=== PATIENT | female | born 1985 | race Caucasian/White ===

== ENCOUNTER → 2021-01-15 11:37 | Outpatient (CLI) | payer OTHER, SELFPAY ==
--- NOTE | 2021-01-15 11:50 | RAD_ITS ---
STUDY: HYSTEROSALPINGOGRAM. REASON FOR EXAM: Female, 35 years old. INFERTILITY FLUOROSCOPY TIME (if supplied): ( 45 seconds ) minutes/seconds. 3 images were obtained. TECHNIQUE: Hysterosalpingogram was performed by the dye box operator. Imaging was submitted. COMPARISON: None. FINDINGS: There is a 3.9 mm x 2.7 mm filling defect in the left superior aspect of the uterus. This may represent either a uterine fibroid or possible polyp. Both fallopian tubes are patent with spill. Degenerative changes of the sacroiliac joints bilaterally. RAD/Salpingogram IMPRESSION: 3.9 mm x 2.7 mm filling defect in the left superior aspect of the uterus. Patency of both fallopian tubes. Sclerosis of the sacroiliac joints. Electronically Signed: Akin Jaffe MD at 15:19 EDT , Service support ,
== END ==
PROVIDERS: PCP Family Medicine; Referring Provider Obstetrics & Gynecology; Visit Provider Obstetrics & Gynecology
DX: N97.9 Female infertility, unspecified (principal)
CPT/HCPCS: 58340; 74740; Q9967

== ENCOUNTER 2021-03-01 05:28 | Day surgery (SDC) | payer OTHER, SELFPAY ==
[2021-02-26 16:32] LABS: Hematocrit 40.2 % (37-47); Hemoglobin 13.2 g/dL (12.0-15.0); Mean Corp Hgb Conc 32.8 g/dL (32-36); Mean Corpuscular Hgb 29.5 pg (27.0-32.0); Mean Corpuscular Volume 89.9 fL (81-99); Platelet Count 295 K/mm3 (150-450); RBC Distribution Width CV 13.1 % (11.6-14.6); RBC Distribution Width SD 43.3 fl (35.1-43.9); Red Blood Count 4.47 M/mm3 (4.2-5.4); White Blood Count 8.7 K/mm3 (4.4-11.0)
[2021-02-26 17:24] LABS: Internal QC Validated? YES +Cl - CLEAR BKGD; International Normalized Ratio 1.1; Pregnancy, Serum, hCG Quali. NEGATIVE Negative; Prothrombin Time (Protime)PT. 13.3 SECONDS (11.7-14.9)
[2021-02-26 17:29] LABS: Partial Thromboplast Time 24.3 Seconds (24.1-36.2)
--- NOTE | 2021-02-28 15:34 | PCM.HP.BLA ---
History and Physical Date of Admission: 03/01/21 Surgical History and Physical Janice Nagel, a 35 year old female 0 0 0 0 0, presents for D and C and hysteroscopy on March 01, 2021 at 10:15. -- Dysmenorrhea, EM Polyp -- Heavy menses and recent HSG showed endometrial polyp vs submucous fibroid in uterus. Plan D and C and H/S. MEDICATIONS HISTORY: ALLERGIES: heparin, Edema Infections - Chicken pox Illnesses - no serious past illnesses Accidents - None Hospitalizations - see surgery Review of Systems: GENERAL - Denies fever, or chills SKIN - Denies skin changes EYES - Denies visual changes EARS - Denies difficulty hearing NOSE - Denies nasal congestion or bleeding MOUTH - Denies sore throat or difficulty swallowing NECK - Denies pain or swelling RESPIRATORY - Denies shortness of breath or wheezing CARDIOVASCULAR - Denies palpitations or chest pain GASTROINTESTINAL - Denies nausea, vomiting, diarrhea, constipation GENITOURINARY - Denies dysuria, frequency of urination, incontinence of urine MUSCULOSKELETAL - Denies joint or muscle pain NEUROLOGICAL - Denies localized numbness or weakness PSYCHIATRIC - Denies depression or anxiety ENDOCRINE - Denies heat or cold intolerance, weight loss or gain HEMATO-IMMUNOLOGIC - Denies excesive bleeding with cuts SOCIAL HISTORY: Alcohol Use - occasionally Smoking - 4-7 cigarettes daily (ATQ) Diet - no particular diet Lifestyle - moderate stress lifestyle and Exercise - active work Seat Belt Use - always Employer - [employer] 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 ; - 2. 1986 Back Surgery PHYSICAL EXAM BP- 120/82 Sitting, Right arm, large cuff Weight- 225.29343 lbs Height- 61.50 inch BMI:41.95 CONSTITUTIONAL - NAD, well nourished, and well developed SKIN - No rash, lesions, or ulcers HEENT - Normocephalic, PERRLA, EOMI NECK - No nodes, no nuchal rigidity and thyroid normal size and texture LYMPH NODES - Palpation of lymph nodes in neck and groins within normal limits LUNGS - CTA x2 without wheezes, crackles or rales CARDIAC - Regular rate and rhythm without rubs, murmurs, or gallops BREAST - No dominant masses, no tenderness, no axillary adenopathy, no nipple discharge, no skin changes ABDOMEN - Without hepatosplenomegaly, distention, masses, rebound, or guarding; normal bowel sounds; no hernias EXTREMITIES - No edema or calf tenderness NEUROLOGICAL - Cranial nerves II-XII grossly intact PSYCHIATRIC - A and O to time, place, person, mood and affect External Genitial Vagina - non-tender without lesions Urethra/Urethral Meatus - non-tender Bladder - non-tender Vagina - vaginal norwood are pink and moist without loss of rugae and no evidence of atropy Cervix - without cervical motion tenderness and has normal size and features without evident lesions Uterus - multiparous size 6 cm & wt 75-125 g Adnexa - clear without massess or tenderness ASSESSMENT/PLAN: Dysmenorrhea and EM Polyp Heavy menses and recent HSG showed endometrial polyp vs submucous fibroid in uterus. Plan D and C and H/S. Discussed RBAs and all questions answered.
[2021-03-01] VITALS (7 sets, daily range): BP systolic 123–148; BP diastolic 77–97; PULSE 89–116; RESP 16–20; TEMP 36.4–36.9; O2SAT 89–97; BMI 40.6
[2021-03-01 06:15] LABS: Internal QC Validated? YES +Cl - CLEAR BKGD; Pregnancy, Urine Negative Negative
[2021-03-01] MEDS: Lactated Ringers 1,000 ML 100 ML IV (06:32)
--- NOTE | 2021-03-01 07:30 | EMB_PTH ---
PATIENT: DONNY SIMS LOC: [facility] [place] U#:[id number] AGE/SX: 35/F ROOM: RE03/01/[address]: Dr. Reza Sesay MD : 1985 BED: DIS: 03/01/2021 SPEC #: [id number] RECD: 03/01/21 10:05 STATUS: OZIEL RERusty #: [id number] NIKOLAS: 03/01/21 07:[address]: Reza Sesay DEPT: SURGICAL PATHOLOGY RECD BY: Dagmar Rushing ENTERED: 03/01/21 11:10 SP TYPE: ENDOM BX/C OTHR DR: Dr. Reza Pardo MD Tissues: Endometrium, NOS Procedures: Surgery Specimen Level IV HEADER OPERATION: Hysteroscopy, Dilation and curettage PRE-OP DIAGNOSIS: Dysmenorrhea, endometrial polyp TISSUE SUBMITTED: Endometrial curettings MICROSCOPIC DIAGNOSIS Endometrium, curettings: Secretory endometrium. Rare strips of benign superficial squamous mucosa. AM:rg 03/02/2021 MICROSCOPIC DESCRIPTION Slides are reviewed. GROSS DESCRIPTION Received in fixative is one container labeled with the patient's name and designated endometrial curettings. The specimen consists of multiple irregular fragments of pink-goodman soft tissue that in aggregate measure 7 x 5 x 0.2 cm. The specimen is totally submitted in three cassettes. / AM:isamar 03/01/21 TC:3 CPT: 01924
--- NOTE | 2021-03-01 08:03 | PCM.OP.BLANK ---
Problems Associated Problem List Diagnoses (1) Endometrial polyp: (2) Dysmenorrhea: Operative Report Date of Procedure: 03/01/21
--- NOTE | 2021-03-01 08:08 | PCM.OPRPT ---
Report of Operation Date of Procedure: 03/01/21 Pre-Operative Diagnosis: Dysmenorrhea, Endometrial Polyp Post-Operative Diagnosis: Dysmenorrhea, Endometrial Polyp Surgery/Procedure Performed:: Diagnostic Hysteroscopy, Dilation and Curettage Description of Surgical Findings:: 8 cm endometrial cavity with plush endometrium and possible endometrial polyps. Type of Anesthesia: MAC Anesthesiologist: Silvia Cristobal Specimen's removed: Endometrial curettings Estimated Blood Loss (mL): Minimal Fluids Replaced: Crystalloid Description of Procedure: Surgeon: Reaz Sesay MD, FACOG Indications: This is a 35 year old patient who has the above diagnosis. The patient has been counseled regarding the risk and indications of this procedure including the possibility of bleeding, infection, and injury to surrounding structures such as bowel bladder. All questions were answered and we consider the patient well-informed. Procedure: The patient was taken to the operating room where after induction of general anesthesia, she was placed in the dorsolithotomy position and prepped and draped in the usual sterile fashion. The bladder was drained of approximately 50 cc of clear yellow urine with a catheter. Anterior cervix was grasped with the tenaculum and dilated to about 4-5 mm. A 3 mm hysteroscope was placed in the uterus of the above findings were noted. Cervix was dilated to about 7-8 mm and uterus was gently curetted removing all contents. Hysteroscope was reinserted and all material was noted to be removed. In the course of the procedure approximately 100 cc of saline distending media was used and virtually all of this was recovered. Patient tolerated procedure well was taken to recovery room in satisfactory condition sponge instrument and needle counts were all reportedly correct. Estimated blood loss for the case was minimal. Specimens to pathology was endometrial curettings Complications: None Complications None Admit VTE Documentation VTE Present on Admission: Yes VTE Mechan Device Prophylaxis: SCD's
--- NOTE | 2021-03-01 08:19 | PCM.DC ---
Discharge Instructions Outpatient Procedure Reason For Visit: HYSTEROSCOPY D&C Procedure: Tubal Ligation Diet Discharge Diet: No restrictions Activity Discharge Activity: Return to Normal Activity, May Drive (when you are no longer taking narcotic pain medications.), May Shower and May Take a Tub Bath May resume sexual activity in: 10-14 days Additional Activity Instructions:: Nothing in the vagina for 5 days. Dressing / Incision Call your doctor if your incision/area has: Continuous Slow Oozing, Sudden Increased Bleeding, Increased Pain/ Swelling, Increased Redness and Foul Smelling Discharge Call your doctor if you observe: Fever of 101 or Higher, Inability to urinate, Inability to have a bowel movement and Using more than one pad per hour Follow Up Care Please Follow Up With: Reza Sesay MD When: 2-3 weeks Test Results: Test results from this visit will be discussed in further detail at your follow-up appointment, if applicable. Discharge Plan Admission Primary Reason for Your Visit: D and C and Hysteroscopy Attending Provider: Reza Sesay Primary Care Provider: Reza Pardo Discharge Orders/Prescriptions Prescriptions: No Action melatonin 10 mg Tablet 10 mg PO QHS RF: 0 Referrals: Reza Pardo MD [Primary Care Provider] - Disposition Patient Disposition: Home, self care
== END 2021-03-01 08:59 | disposition home or self-care (01) ==
LOC: SDC 05:29 → AC 05:30
PROVIDERS: PCP Family Medicine; Referring Provider Obstetrics & Gynecology; Visit Provider Obstetrics & Gynecology
PROC: 0UDB8ZZ Extraction of Endometrium, Via Natural or Artificial Opening Endoscopic (ICD-10-PCS; CPT 58558; principal; 2021-03-01 07:20)
DX: N94.6 Dysmenorrhea, unspecified (principal); N84.0 Polyp of corpus uteri; F17.210 Nicotine dependence, cigarettes, uncomplicated; Z20.822 Contact with and (suspected) exposure to COVID-19
CPT/HCPCS: 00952; 58558; 36415; 81025; 84703; 85027; 85610; 85730; 86850; 86900; 86901; 87426; 88305; C9803; J7120; J2405

== ENCOUNTER → 2021-05-28 09:45 | Outpatient (CLI) | payer OTHER, SELFPAY ==
[2021-03-01 06:26] VITALS: BMI 40.6
[2021-05-28 10:47] LABS: Insulin 10.8 mU/L (2.6-37.6)
[2021-05-28 10:49] LABS: Glucose 75GTT - Fasting 90 mg/dL (70-99)
[2021-05-28 11:11] LABS: Glucose 89 mg/dL (74-106)
[2021-05-28 11:13] LABS: Glucose 75GTT - 30 minutes 137 mg/dL (100-160)
[2021-05-28 11:17] LABS: Glucose 75GTT - 60 minutes 112 mg/dL (100-160)
[2021-05-28 12:51] LABS: Glucose 75GTT - 120 minutes 116 mg/dL (70-140)
== END ==
PROVIDERS: PCP Family Medicine; Referring Provider Obstetrics & Gynecology Reproductive Endocrinology; Visit Provider Obstetrics & Gynecology Reproductive Endocrinology
DX: E16.8 Other specified disorders of pancreatic internal secretion (principal)
CPT/HCPCS: 36415; 82947; 82951; 82952; 83525

== ENCOUNTER 2021-08-29 23:09 | Observation (INO) | payer OTHER, SELFPAY ==
[2021-08-29 23:10] VITALS: BP 163/102; PULSE 136; RESP 18; TEMP 36; O2SAT 95; BMI 43.1
[2021-08-29 23:12] VITALS: BP 163/102; PULSE 136; RESP 18; TEMP 36; O2SAT 95
--- NOTE | 2021-08-29 23:38 | CT_ITS ---
EXAM: CT ABDOMEN AND PELVIS WITH INTRAVENOUS CONTRAST : 1985 CLINICAL INDICATION: Abdominal pain -- IV PO Contrast TECHNIQUE: Helically acquired images were obtained of the abdomen and pelvis with intravenous contrast. This CT exam was performed using one or more of the following dose reduction techniques: automated exposure control, adjustment of the mA and/or kV according to patient size, and/or use of iterative reconstruction technique. This report was created using General Blood report generation technology. CONTRAST: Oral Tamp; IV Gastrografin Tamp; 100mL Isovue-370 COMPARISON: None. FINDINGS: LOWER THORAX: Bibasilar atelectasis. No cardiomegaly. No significant pericardial effusion. ABDOMEN: LIVER: Unremarkable. Homogeneous. No focal mass. GALLBLADDER AND BILE DUCTS: Unremarkable. No calcified gallstones. No gallbladder distention or wall edema. No intra- or extrahepatic biliary ductal dilation. PANCREAS: Unremarkable. No focal cystic or solid mass. SPLEEN: Unremarkable. Normal size without focal cystic or solid mass. ADRENALS: Unremarkable. No nodules. KIDNEYS AND URETERS: Unremarkable. Normal renal size and position. No hydronephrosis. STOMACH AND BOWEL: Unremarkable. No stomach or bowel distention. No focal inflammatory change. PELVIS: APPENDIX: The appendix is normal. BLADDER: Unremarkable. REPRODUCTIVE: Complex right adnexal hypodense structure measuring 5.5 x 3.6 cm with some mild adjacent stranding. ABDOMEN and PELVIS: INTRAPERITONEAL SPACE: Unremarkable. No ascites or other fluid collection. No free air. BONES/JOINTS: Unremarkable. No suspicious lytic or blastic abnormality. SOFT TISSUES: Unremarkable. No discrete abdominal or pelvic wall hernia. VASCULATURE: Unremarkable. Abdominal aorta is non-dilated. LYMPH NODES: Unremarkable. No enlarged lymph nodes. CT/Abdomen/Pelvis WITH Contrast IMPRESSION: Complex right adnexal hypodense structure measuring 5.5 x 3.6 cm with some mild adjacent stranding. Findings could indicate a complex cyst or tubo-ovarian abscess. Consider ultrasound for further evaluation. Individualized dose optimization techniques were used for this CT. at 0202 Reported and signed by: Johny Reed MD Electronically Signed: Johny Reed MD at 2:02 EDT Tel , Service support ,
[2021-08-29] MEDS: 0.9% Normal Saline 1,000 ML 1000 ML IV (23:55)
--- NOTE | 2021-08-29 23:55 | ED.VIS.GI ---
HPI HPI - GI History of Present Illness Chief Complaint: Abd Pain Informant: patient Abdominal Pain/Flank Pain Onset: Yesterday Context: Gradual Onset Timing: Continuous Quality: Sharp Location: RLQ and LLQ Worsened by: Movement Relieved by: Nothing Nausea/Vomiting/Emesis GI Symptom: Positive for Nausea and Vomiting Diarrhea/Melena/Hematochezia GI Symptom: Negative for Diarrhea, Melena and Hematochezia Associated Symptoms Associated Symptoms: Negative for Dysuria, Frequency and Hematuria Narrative Narrative: Patient presents with abdominal pain that began yesterday. Patient states it is gradually getting worse. Patient states it is over her lower abdomen. Patient states it is sharp. Patient states that she had similar pains with constipation in the past. Patient states her pain is worse with any movement. Patient states she did have an episode of nausea and vomiting with the pain earlier this morning. Patient denies any fevers or chills. Patient denies any dysuria or hematuria. PFSH PFSH Medical History Anxiety Diabetes Edema Injury of back Migraine headache Smoker Wears glasses Home Medications melatonin 10 mg PO QHS 02/23/21 [History Last Taken Unknown] PNV 67-iron ps-folate no.1-dha [Vitafol Ultra] 1 cap PO DAILY 08/30/21 [History Last Taken Unknown] Allergy/AdvReac Type Severity Reaction Status Date / Time warfarin sodium Allergy Swelling Verified 03/01/21 06:02 [From Coumadin] BLOOD THINNERS Allergy Unknown Uncoded 03/01/21 06:02 Surgical History History of lumbar laminectomy Social History Smoking Status: Current every day smoker tobacco type: cigarettes ROS ROS ED Constitutional Constitutional ED: Denies chills or fever(s) Eyes Eyes: Denies blurry vision or change in vision ENT ENT ED: Denies rhinorrhea or sore throat Cardiovascular Cardiovascular: Denies chest pain or palpitations Respiratory/Chest Respiratory/Chest: Denies cough or dyspnea Gastrointestinal Gastrointestinal: Reports abdominal pain, constipation, nausea and vomiting Genitourinary Genitourinary ED: Denies dysuria or hematuria Musculoskeletal Musculoskeletal: Denies back pain or neck pain Integumentary Denies abscess or rash Neurologic Neurologic: Denies headache(s) or weakness Allergic/Immunologic Allergic/Immunologic ED: Denies mouth swelling or urticaria EXAM Physical Exam Const Vital Signs: 08/29/21 23:10 08/29/21 23:12 08/30/21 03:39 Temperature 96.8 F L 96.8 F L 98.8 F Temperature Source Temporal Temporal Oral Pulse Rate 136 H 136 H 106 H Respiratory Rate 18 18 18 Blood Pressure 163/102 H 163/102 H 132/64 H Blood Pressure Mean 122 122 86 Pulse Ox 95 95 95 Oxygen Delivery Method Room Air Room Air Room Air 08/30/21 04:45 08/30/21 07:00 Temperature 98 F Temperature Source Oral Pulse Rate 108 H 101 H Respiratory Rate 16 18 Blood Pressure 129/84 H 115/72 Blood Pressure Mean 99 86 Pulse Ox 97 94 Oxygen Delivery Method Room Air Room Air Positive well nourished and well developed General Appearance ED: well developed HEENT Reports moist mucous membranes Neck supple and no JVD Resp normal respiratory effort and clear to auscultation bilaterally Cardio regular rate, regular rhythm and no murmurs GI normal to inspection, nondistended, normoactive bowel sounds Palpation: soft and tender epigastric, LLQ, RLQ, LUQ, RUQ, periumbilical and suprapubic; Negative for guarding or rebound tenderness present Extremity normal to inspection General Extremety ED: Negative for edema or tenderness General Extremity: Negative for edema Neuro oriented x3, CN's II-XII intact bilaterally and no sensory deficits noted Sensorium / Orientation: alert Motor Exam: strength 5/5 throughout Psych mental status grossly normal Skin no rashes or lesions noted MDM MDM MDM Narrative Medical decision making narrative: Patient IV fluids, morphine, and Zofran. CBC shows a leukocytosis of 13.3. Comprehensive metabolic profile is within normal limits. Urinalysis does not show any evidence of urinary tract infection. CT scan of the abdomen pelvis was obtained. There is a complex hypodense structure in the right adnexal area. This could be a complex cyst versus tubo-ovarian abscess. They recommended ultrasound to further evaluate. Patient was given cefotetan and doxycycline. Pelvic ultrasound was ordered. The area is consistent with a tubo-ovarian abscess. Case was discussed with Dr. Maira Vazquez. She will admit the patient to her service. She recommended obtaining a GC and chlamydia culture. This was ordered. Patient understood and was agreeable with the plan. All questions were answered. Lab Data Attestation: I reviewed the patient's lab results. Labs: Laboratory Results - last 24 hr 08/29/21 08/29/21 08/29/21 01:05 23:51 23:51 WBC 13.3 H RBC 4.46 Hgb 13.1 Hct 39.1 MCV 87.7 MCH 29.4 MCHC 33.5 RDW Std Deviation 44.3 H RDW Coeff of Kike 13.8 Plt Count 259 MPV 10.0 Immature Gran % (Auto) 0.400 Neut % (Auto) 80.8 H Lymph % (Auto) 13.8 L [place] % (Auto) 4.2 Eos % (Auto) 0.4 Baso % (Auto) 0.4 Absolute Neuts (auto) 10.7 H Absolute Lymphs (auto) 1.83 Nucleated RBC % 0 Sodium 138 Potassium 3.5 Chloride 109 H Carbon Dioxide 21.0 Anion Gap 8 BUN 11 Creatinine 0.70 Estim Creat Clear Calc 89.56 Est GFR (MDRD) Af Amer 124 Est GFR (MDRD) Non-Af 103 BUN/Creatinine Ratio 15.8 Glucose 122 H Calcium 8.4 L Total Bilirubin 0.50 AST 9 L ALT 20 Alkaline Phosphatase 56 Total Protein 7.2 Albumin 3.1 L Globulin 4.1 Albumin/Globulin Ratio 0.8 L Lipase 105 Serum , Qual Urine Color Yellow Urine Clarity Clear Urine pH 6.0 Ur Specific [place] 1.010 Urine Protein Negative Urine Glucose (UA) Normal Urine Ketones Negative Urine Occult Blood 250 H Urine Nitrite Negative Urine Bilirubin Negative Urine Urobilinogen Normal Ur Leukocyte Esterase 25 H Urine RBC 0-5 SEEN Urine WBC 0-5 SEEN Ur Squamous Epith Cells 0-5 SEEN Urine Bacteria RARE Urine Mucus 0 SEEN 08/29/21 23:51 WBC RBC Hgb Hct MCV MCH MCHC RDW Std Deviation RDW Coeff of Kike Plt Count MPV Immature Gran % (Auto) Neut % (Auto) Lymph % (Auto) [place] % (Auto) Eos % (Auto) Baso % (Auto) Absolute Neuts (auto) Absolute Lymphs (auto) Nucleated RBC % Sodium Potassium Chloride Carbon Dioxide Anion Gap BUN Creatinine Estim Creat Clear Calc Est GFR (MDRD) Af Amer Est GFR (MDRD) Non-Af BUN/Creatinine Ratio Glucose Calcium Total Bilirubin AST ALT Alkaline Phosphatase Total Protein Albumin Globulin Albumin/Globulin Ratio Lipase Serum , Qual NEGATIVE Urine Color Urine Clarity Urine pH Ur Specific [place] Urine Protein Urine Glucose (UA) Urine Ketones Urine Occult Blood Urine Nitrite Urine Bilirubin Urine Urobilinogen Ur Leukocyte Esterase Urine RBC Urine WBC Ur Squamous Epith Cells Urine Bacteria Urine Mucus Radiography Diagnostic Testing: Clinical Impression(s) from Imaging Studies Abdomen/Pelvis CT 08/29/21 23:38 IMPRESSION: Complex right adnexal hypodense structure measuring 5.5 x 3.6 cm with some mild adjacent stranding. Findings could indicate a complex cyst or tubo-ovarian abscess. Consider ultrasound for further evaluation. Individualized dose optimization techniques were used for this CT. at 0202 Reported and signed by: Johny Reed MD Electronically Signed: Johny Reed MD at 2:02 EDT Tel , Service support , Transvaginal US 08/30/21 03:12 IMPRESSION: Large complex right ovarian lesion containing debris, measuring 6.8 x 3.6 x 3.8 cm. Findings are concerning for tubo-ovarian abscess. at 0756 Reported and signed by: Johny Reed MD Electronically Signed: Johny Reed MD at 7:56 EDT Tel , Service support , Treatment and Re-Evaluation Vital Sign Attestation:: Vital signs were reviewed prior to admission. They are stable. Discharge Plan Dx/Rx/DC Orders Clinical Impression: Tubo-ovarian abscess Disposition Disposition: Acute Care [facility]
[2021-08-30] VITALS (7 sets, daily range): BP systolic 113–142; BP diastolic 64–99; PULSE 70–112; RESP 16–18; TEMP 36.6–37.2; O2SAT 92–97; BMI 33.1
[2021-08-30] MEDS: Ondansetron 4 MG/2 ML Vial IV (00:07)
[2021-08-30] MEDS: Morphine 4 MG/ML Syringe IV ×2 (00:08→03:18)
[2021-08-30 00:13] LABS: Absolute Lymphocyte Count 1.83 X10^3/uL (0.83-4.51); Absolute Neutrophil Count 10.7 X10^3/uL (2.0-7.7); Basophil# 0.05 X10^3/uL; Basophil% 0.4 % (0-1); Eosinophil# 0.05 X10^3/uL; Eosinophils% 0.4 % (0-5); Hematocrit 39.1 % (37-47); Hemoglobin 13.1 g/dL (12.0-15.0); Lymphocyte # 1.83 X10^3/ul (0.83-4.51); Lymphocyte % 13.8 % (19-41); Mean Corp Hgb Conc 33.5 g/dL (32-36); Mean Corpuscular Hgb 29.4 pg (27.0-32.0); Mean Corpuscular Volume 87.7 fL (81-99); Monocyte# 0.55 X10^3/uL; Monocyte% 4.2 % (0-10); NRBC Flagged by Analyzer 0 % (0-5); Neutrophil # 10.72 X10^3/uL (2.7-7.7); Neutrophil % 80.8 % (47-70); Platelet Count 259 K/mm3 (150-450); RBC Distribution Width CV 13.8 % (11.6-14.6); RBC Distribution Width SD 44.3 fl (35.1-43.9); Red Blood Count 4.46 M/mm3 (4.2-5.4); White Blood Count 13.3 K/mm3 (4.4-11.0)
[2021-08-30 00:18] LABS: ALB/GLOB Ratio 0.8 RATIO (0.9-2.4); AST(SGOT) 9 U/L (15-37); Alanine Aminotransfer ALT/SGPT 20 U/L (13-56); Albumin, Serum 3.1 g/dL (3.2-5.0); Alkaline Phosphatase 56 U/L (45-117); Anion Gap 8 (5-15); BUN 11 mg/dL (7-18); BUN/Creat Ratio 15.8 RATIO (10-20); Calcium,Total 8.4 mg/dL (8.5-10.1); Chloride 109 mmol/L (98-107); EST Glomerular Filtration Rate 103 mL/min (>60); Est Glom Filt Rate - Afr Amer 124 mL/min (>60); Estimated Creatinine Clearance 89.56 ml/min; Globulin 4.1 g/dL (2.2-4.2); Glucose 122 mg/dL (74-106); Lipase 105 U/L (73-393); Potassium 3.5 mmol/L (3.5-5.1); Protein, Total 7.2 g/dL (6.4-8.2); Sodium Level 138 mmol/L (136-145)
[2021-08-30 00:31] LABS: Internal QC Validated? YES +Cl - CLEAR BKGD; Pregnancy, Serum, hCG Quali. NEGATIVE Negative
[2021-08-30 01:09] LABS: Mucous, Urine 0 SEEN /hpf (<or=2+)
[2021-08-30 01:12] LABS: Color, Urine Yellow (Yellow); Glucose, Dipstick Normal (Normal); Ketone-Dipstick Negative (Negative); Leukocyte Esterase-Dipstick 25 /ul (Negative); Nitrite-Dipstick Negative (Negative); Occult Blood-Urine 250 /ul (Negative); Protein-Dipstick Negative (Negative); Urine Bilirubin Dipstick Negative (Negative); Urine Clarity Clear (Clear); Urine Urobilinogen Normal (Normal)
[2021-08-30 01:26] LABS: Bacteria RARE /hpf (None Seen); Red Blood Cells-Urine 0-5 SEEN /hpf (0-5); Squamous Epithelial Cells - UA 0-5 SEEN /hpf (5-10); White Blood Cells 0-5 SEEN /hpf (0-5)
--- NOTE | 2021-08-30 03:12 | US_ITS ---
EXAM: US PELVIS TRANSVAGINAL : 1985 CLINICAL INDICATION: Pelvic pain -- Complex cyst versus tubo-ovarian abscess on CT TECHNIQUE: Transvaginal pelvic ultrasound was performed with grayscale and color Doppler imaging. Transvaginal imaging was used for better evaluation of the endometrium and adnexa. This report was created using Method report generation technology. COMPARISON: CT from same date FINDINGS: UTERUS/CERVIX: Uterus: 8.9 x 5.2 x 4.1 cm. Endometrium: 7 mm Anteverted. There is no uterine mass. RIGHT OVARY: Large complex right ovarian lesion containing debris, measuring 6.8 x 3.6 x 3.8 cm. 8.5 x 4.8 x 5.5 cm. Blood flow is present in the right ovary. LEFT OVARY: 3.8 x 3.9 x 2.6 cm. Blood flow is present in the left ovary. FREE FLUID: Small amount in the pelvic cul-de-sac. US/Transvaginal Non- IMPRESSION: Large complex right ovarian lesion containing debris, measuring 6.8 x 3.6 x 3.8 cm. Findings are concerning for tubo-ovarian abscess. at 0756 Reported and signed by: Johny Reed MD Electronically Signed: Johny Reed MD at 7:56 EDT Tel , Service support ,
--- NOTE | 2021-08-30 09:36 | PCS.PANDOC ---
PANDEMIC DOCUMENTATION INITIATED: Date: 06/14/2021 Time: 190
[2021-08-30] MEDS: 0.9% Saline Lock 10 ML Syringe IV (11:06)
[2021-08-30 11:37] LABS: Chlamydia Trachomatis by PCR Negative (Negative); Neisserai gonorrhoeae by PCR Negative (Negative); Probe Check PASS; Sample Adequacy Control PASS; Specimen Processing Control PASS
[2021-08-30] MEDS: oxyCODONE 5 MG Tablet PO ×2 (13:24→21:55)
[2021-08-30] MEDS: Ibuprofen 600 MG Tablet PO (15:29)
--- NOTE | 2021-08-30 20:59 | PCM.HP.BLA ---
History and Physical Date of Admission: 08/30/21 HPI: 36-year-old female admitted with suspected tubo-ovarian abscess. Patient reports abdominal pain which started on Monday. She states pain is mostly in the lower abdomen but occasionally upper. Pain is a pulling aching pain. Nonradiating. Denies vaginal discharge, fevers or chills, nausea or vomiting. Reports constipation. Denies skin changes, vision changes. Patient tried pain medication at home including oxycodone that she had from previous surgery, which did not improve pain. That is why she came into the hospital. Improved since admission. Now able to move better and pain is better controlled. [employer] history: G0. Stage IV endometriosis. Seeing LENARD Medical history: Prediabetes Surgical history: - Hysteroscopy, D&C -Laparoscopic excision of of endometrioma and endometriosis Allergies: Heparin Family history: No history of blood clots or bleeding disorders, noncontributory Medications: Denies Social: Reports cigarette use, denies drug use or alcohol Review of systems: Otherwise negative aside from above Physical exam: Vitals: Blood pressure 142/99 Pulse 99 Respirations 18 Temperature 99 ?F Oxygen saturation 94% on room air General: Patient is well-appearing and in no acute distress HEENT: Normocephalic atraumatic, pupils equally round and reactive to light and accommodation Cardiorespiratory: No increased effort Abdomen: Soft, nondistended. No rebound or guarding. Mildly tender in lower abdomen Extremities: No edema Neurologic: Cranial nerves II through XII grossly intact Musculoskeletal: Strength 5 out of 5 in all extremities Lab/diagnostic imaging: Laboratory values significant for mild leukocytosis 13.1 CT abdomen pelvis and ultrasound demonstrating possible right tubo-ovarian abscess Assessment/plan: 1. Tubo-ovarian abscess -Working diagnosis of tubo-ovarian abscess based on imaging, mild leukocytosis. Afebrile. Negative gonorrhea and chlamydia. Patient does have history of endometrioma and endometriosis which is also a possible diagnosis or cause of her abdominal pain. However based on her mild leukocytosis and improvement with antibiotics we will continue to treat as tubo-ovarian abscess. -Continue doxycycline 100 mg every 12 hours IV and cefotetan 2g every 6 hours IV -Repeat CBC in the morning -Motrin and oxycodone as needed for pain -Colace and MiraLAX as needed for constipation Diet: Regular IV fluids: None DVT prophylaxis: Ambulation, SCDs Dispo: Plan for at least 24 hours of IV antibiotics. If patient is feeling improved tomorrow and continues to be afebrile, will discharge home with 14 days of doxycycline and Flagyl. She will need follow-up in office. 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
[2021-08-31 02:56] VITALS: BP 117/79; PULSE 102; RESP 16; TEMP 37.1; O2SAT 93
[2021-08-31] MEDS: Docusate Sodium 100 MG Capsule PO (05:20)
[2021-08-31] MEDS: oxyCODONE 5 MG Tablet PO (05:23)
[2021-08-31 06:08] LABS: Absolute Lymphocyte Count 1.57 X10^3/uL (0.83-4.51); Absolute Neutrophil Count 9.3 X10^3/uL (2.0-7.7); Basophil# 0.04 X10^3/uL; Basophil% 0.3 % (0-1); Eosinophil# 0.14 X10^3/uL; Eosinophils% 1.2 % (0-5); Hematocrit 36.1 % (37-47); Hemoglobin 11.7 g/dL (12.0-15.0); Lymphocyte # 1.57 X10^3/ul (0.83-4.51); Lymphocyte % 13.2 % (19-41); Mean Corp Hgb Conc 32.4 g/dL (32-36); Mean Corpuscular Volume 89.6 fL (81-99); Mean Platelet Vol. 10.1 fl (6.2-12.0); Monocyte# 0.83 X10^3/uL; NRBC Flagged by Analyzer 0 % (0-5); Neutrophil # 9.29 X10^3/uL (2.7-7.7); Neutrophil % 77.8 % (47-70); Platelet Count 236 K/mm3 (150-450); RBC Distribution Width CV 13.8 % (11.6-14.6); RBC Distribution Width SD 45.2 fl (35.1-43.9); Red Blood Count 4.03 M/mm3 (4.2-5.4); White Blood Count 11.9 K/mm3 (4.4-11.0)
--- NOTE | 2021-08-31 08:36 | PCM.PN.OB ---
Subjective Subjective Patient feeling improved. States that she is able to move easier, slept better overnight. Still has some pressure in her lower abdomen but this is less than it was over the weekend. No nausea or vomiting. Objective Data Objective Data Vital Signs: Vital Signs Temp Pulse Resp BP Pulse Ox 98.7 F 102 H 16 117/79 93 08/31/21 02:56 08/31/21 02:56 08/31/21 02:56 08/31/21 02:56 08/31/21 02:56 Oxygen Delivery Method Room Air Weight: 104.825 kg Body Mass Index (BMI) 33.1 Intake & Output: Intake and Output for Last 24 Hours 08/29/21 08/30/21 08/31/21 23:59 23:59 23:59 Intake Total 2620 / 2920 1010 / 1010 Balance 2620 / 2920 1010 / 1010 Lab / Micro Data Result Diagrams: 08/31/21 05:54 08/29/21 23:51 Labs: Laboratory Results - last 24 hr 08/29/21 01:05: Urine Color Yellow, Urine Clarity Clear, Urine pH 6.0, Ur Specific [place] 1.010, Urine Protein Negative, Urine Glucose (UA) Normal, Urine Ketones Negative, Urine Occult Blood 250 H, Urine Nitrite Negative, Urine Bilirubin Negative, Urine Urobilinogen Normal, Ur Leukocyte Esterase 25 H, Urine RBC 0-5 SEEN, Urine WBC 0-5 SEEN, Ur Squamous Epith Cells 0-5 SEEN, Urine Bacteria RARE, Urine Mucus 0 SEEN 08/30/21 01:05: Chlam trachomat DNA PCR Negative, N.gonorrhoeae DNA (PCR) Negative 08/31/21 05:54: WBC 11.9 H, RBC 4.03 L, Hgb 11.7 L, Hct 36.1 L, MCV 89.6, MCH 29.0, MCHC 32.4, RDW Std Deviation 45.2 H, RDW Coeff of Kike 13.8, Plt Count 236, MPV 10.1, Immature Gran % (Auto) 0.500, Neut % (Auto) 77.8 H, Lymph % (Auto) 13.2 L, [place] % (Auto) 7.0, Eos % (Auto) 1.2, Baso % (Auto) 0.3, Absolute Neuts (auto) 9.3 H, Absolute Lymphs (auto) 1.57, Nucleated RBC % 0 Physical Exam Const alert, oriented x3 and no apparent distress HEENT normocephalic Head and Scalp: atraumatic Resp normal respiratory effort Cardio regular rate GI normal to inspection, nondistended, normoactive bowel sounds, soft to palpation and non-tender Palpation: Negative for guarding or rigid Extremity normal to inspection and no pedal edema Assessment & Plan (1) Tubo-ovarian abscess: PLAN: Leukocytosis improved. Patient continues to be afebrile. Pain improved. -Continue one more dose of antibiotics this morning. -We will plan to discharge this afternoon with doxycycline and Flagyl for 14 days. -Motrin and Tylenol for pain at home. -Colace and MiraLAX as needed for constipation -Patient to follow-up within the next week for ultrasound and visit in office. 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
--- NOTE | 2021-08-31 08:39 | PCM.DC ---
Discharge Instructions Diet Discharge Diet: No restrictions Activity Discharge Activity: Return to Normal Activity, May Shower and May Take a Tub Bath May resume sexual activity in: 2 weeks Weight Bearing Status: Weight bearing as tolerated Dressing / Incision Call your doctor if you observe: Fever of 101 or Higher and Uncontrolled pain Follow Up Care Please Follow Up With: Maira Vazquez DO When: 1 week Test Results: Test results from this visit will be discussed in further detail at your follow-up appointment, if applicable. Discharge Plan Admission Admit Date/Time: 08/30/21 08:47 Primary Reason for Your Visit: Tubo-ovarian abscess Attending Provider: Maira Vazquez Primary Care Provider: Care Physician,Eleanor Primary Discharge Orders/Prescriptions Prescriptions: New doxycycline hyclate 100 mg capsule 100 mg PO Q12H 14 Days Qty: 28 RF: 0 metronidazole 500 mg tablet 500 mg PO Q12H 14 Days Qty: 28 RF: 0 Continued melatonin 10 mg Tablet 10 mg PO QHS RF: 0 Vitafol Ultra 29 mg iron- 1 mg-200 mg capsule 1 cap PO DAILY RF: 0 Referrals / Follow Up: Maira Vazquez DO [STAFF PHYSICIAN] - (Follow up in office 1 week) Reza Sesay MD [STAFF PHYSICIAN] - Care Physician,No Primary [Primary Care Provider] -
[2021-08-31 09:00] VITALS: BP 139/82; PULSE 108; RESP 18; TEMP 36.9; O2SAT 94
[2021-08-31] MEDS: 0.9% Saline Lock 10 ML Syringe IV (09:00)
[2021-08-31] MEDS: Polyethylene Glycol 3350 17 GM PACKET PO (09:09)
[2021-08-31 09:27] VITALS: PULSE 108
[2021-08-31] MEDS: Ibuprofen 600 MG Tablet PO (10:21)
[2021-08-31 14:14] VITALS: BP 143/93; PULSE 109; RESP 18; TEMP 36.7; O2SAT 96
== END 2021-08-31 14:20 | disposition home or self-care (01) ==
LOC: ED 08-30 08:10 → PCU 08-30 08:49 → MS2 08-31 07:44
PROVIDERS: Admitting Provider Student in an Organized Health Care Education/Training Program; Emergency Provider Emergency Medicine; Visit Provider Student in an Organized Health Care Education/Training Program
DX: N70.93 Salpingitis and oophoritis, unspecified (principal); F41.9 Anxiety disorder, unspecified; Z79.899 Other long term (current) drug therapy; F17.210 Nicotine dependence, cigarettes, uncomplicated; R73.03 Prediabetes
CPT/HCPCS: 36415; 74177; 76830; 80053; 81001; 83690; 84703; 85025; 87491; 87591; 93976; 96365; 96366; 96367; 96368; 96375; 96376; 99218; 99284; 99406; J7030; J7050; Q9967; A4216; G0378; J2405

== ENCOUNTER → 2022-09-16 | Outpatient (CLI) | payer OTHER, SELFPAY ==
[2022-09-25 11:46] LABS: HPV APTIMA, High Risk Negative (Negative)
== END | disposition home or self-care (01) ==
LOC: LABSPEC 15:11
PROVIDERS: Visit Provider Student in an Organized Health Care Education/Training Program
DX: Z12.4 Encounter for screening for malignant neoplasm of cervix (principal)
CPT/HCPCS: 87624; 88175; G0145

== ENCOUNTER 2024-04-24 06:48 | Emergency (ER) | payer BC, SELFPAY ==
[2024-04-24 06:49] VITALS: BP 164/117; PULSE 101; RESP 20; TEMP 36.1; O2SAT 96; BMI 47.1
--- NOTE | 2024-04-24 07:09 | EX.ED.UPPERE ---
HPI History of Present Illness HPI Narrative: Patient presents with pain in her left elbow, forearm, and hand that began this morning. Patient states it woke her up earlier this morning. Patient describes her pain as sharp and dull. Patient denies any trauma or injury. Patient admits to some swelling of her left upper extremity. Patient admits to some numbness and tingling into her fingers. Patient states her pain is worse with any movement of her fingers. Patient also states her pain is worse with abduction of her shoulder. Patient admits to doing a lot of repetitive motion at work. Chief Complaint: Upper Extremity Injury Informant: patient Onset/Context/Timing Onset: Today Context: Sudden Onset Timing: Continuous Quality of Pain: Sharp and Dull Location: Left elbow, forearm, and hand Worsened by: Abduction of the shoulder and movement of her fingers Relieved by: Nothing Associated Symptoms Associated Symptoms: Positive for Parasthesia and Weakness; Negative for Loss of Funtion [facility] Medical History (Updated 04/24/24 @ 08:[address] Ru Song DO) Endometriosis Wears glasses Anxiety Diabetes Smoker Edema Migraine headache Injury of back Home Medications ?Medication ?Instructions ?Recorded ?Last Taken ?Type drospirenone (contraceptive) 4 mg 04/24/24 Unknown History (28) tablet (Slynd) naproxen 500 mg tablet (Naprosyn) 500 mg PO BID PRN pain #20 tabs 04/24/24 Unknown Rx Allergy/AdvReac Type Severity Reaction Status Date / Time warfarin sodium (From Allergy Swelling Verified 04/24/24 06:54 Coumadin) BLOOD THINNERS Allergy Unknown Uncoded 03/01/21 06:02 Surgical History (Updated 04/24/24 @ 07:[address] Ru Song DO) S/P cervical polypectomy History of removal of ovarian cyst History of lumbar laminectomy Social History Smoking Status: Current every day smoker tobacco type: e-cigarettes ROS ROS ED Constitutional Constitutional ED: Denies chills or fever(s) Eyes Eyes: Denies blurry vision or change in vision ENT ENT ED: Denies rhinorrhea or sore throat Cardiovascular Cardiovascular: Denies chest pain or palpitations Respiratory/Chest Respiratory/Chest: Denies cough or dyspnea Gastrointestinal Gastrointestinal: Denies nausea or vomiting Genitourinary Genitourinary ED: Denies dysuria or hematuria Musculoskeletal Musculoskeletal: Reports back pain; Denies neck pain Integumentary Denies abscess or rash Neurologic Neurologic: Reports paresthesias LUE; Denies headache(s) or weakness Allergic/Immunologic Allergic/Immunologic ED: Denies mouth swelling or urticaria EXAM Physical Exam Const Vital Signs: 04/24/24 06:49 Temperature 97 F L Temperature Source Temporal Pulse Rate 101 H Respiratory Rate 20 H Blood Pressure 164/117 H Blood Pressure Mean 132 Pulse Ox 96 Oxygen Delivery Method Room Air Positive well nourished and well developed General Appearance ED: well developed and NAD HEENT Reports moist mucous membranes Neck full ROM and supple General: Negative for tenderness Extremity Extremity Narrative: There is mild tenderness over the volar aspect of the left proximal forearm. There is no edema or ecchymosis. There is no bony crepitance or step-off. There is no deformity noted. There is good range of motion of the elbow. Range of motion of the fingers was limited secondary to pain. There is negative Tinel's sign. There is negative Phalen sign. Strength is 5/5 in the radial, median, and ulnar areas. Sensation was intact to light touch in the radial, ulnar, and axillary areas. There was some paresthesias over the median nerve distribution. Radial pulses are equal bilaterally. There is a strong radial pulse with abduction and external rotation of the shoulder. Neuro oriented x3, CN's II-XII intact bilaterally, moves all extremities and no focal motor deficits Sensorium / Orientation: alert Psych mental status grossly normal MDM MDM MDM Narrative Medical decision making narrative: Patient was advised that this is likely a peripheral neuropathy. It could be carpal tunnel or compression of her median nerve at the elbow or shoulder. Patient was advised that she may need nerve conduction studies to determine the site of the nerve compression. Patient was advised x-rays are not of any benefit at this time. I do not feel that this is from a DVT since there is only minimal edema compared to the right. Patient was given a prescription for Naprosyn. Patient was given a Velcro wrist splint. Patient was instructed to ice and elevate her left upper extremity. Patient was instructed to follow-up with a primary care physician in 5 to 7 days. Patient understood and was agreeable with the plan. All questions were answered. Discharge Plan Triage Chief Complaint: Upper Extremity Injury ED Provider: Schwiger,Ru Dx/Rx/DC Orders Clinical Impression: Left median nerve neuropathy, Nicotine use, BMI 45.0-49.9, adult Instructions: ED Carpal Tunnel Syndrome, ED Shoulder Impingement Syndrome, ED Paraesthesias Prescriptions: New naproxen [Naprosyn] 500 mg tablet 500 mg PO BID PRN (Reason: pain) Qty: 20 0RF No Action Slynd 4 mg (28) tablet Patient Comments: PLEASE SEE ATTACHED FOR DETAILED DIRECTIONS Primary Care Provider: Care Physician,No Primary Referrals: Julien Figueroa MD [Med Staff - Active Staff] - 5-7 Days Care Physician,No Primary [Primary Care Provider] - Print Language: Arabic Disposition Disposition: Home, Self Care Discharge Date/Time: 04/24/24 07:49
[2024-04-24] MEDS: Naproxen 500 MG Tablet PO (07:45)
[2024-04-24 07:48] VITALS: BP 147/101; PULSE 80; RESP 18; TEMP 36.7; O2SAT 94
== END 2024-04-24 07:49 | disposition home or self-care (01) ==
LOC: ED 07:47
PROVIDERS: Emergency Provider Emergency Medicine; Visit Provider Emergency Medicine
DX: G56.12 Other lesions of median nerve, left upper limb (principal); E11.9 Type 2 diabetes mellitus without complications; Z79.3 Long term (current) use of hormonal contraceptives; F17.290 Nicotine dependence, other tobacco product, uncomplicated
CPT/HCPCS: 99283

== ENCOUNTER → 2024-06-03 | Outpatient (CLI) | payer BC, SELFPAY ==
--- NOTE | 2024-06-03 08:41 | NEURO ---
NCS and/or EMG Patient Report Ordering Doctor: Julien Figueroa DATE OF SERVICE: 06/03/24 Clinical Summary: 39 year old female patient with symptoms of numbness, tingling, and pain in the bilateral upper extremities but more pronounced on the left side. A bilateral upper extremity EMG/NCS was performed. Nerve Conduction Studies Summary: The median-D2 SNAP distal latency was prolonged bilaterally. The median-APB CMAP distal latency was prolonged bilaterally. Otherwise, performed nerve conductions in the bilateral upper extremities were within normal ranges. Needle Examination Summary: Needle examination of select muscles of the bilateral upper extremities demonstrated a higher proportion of motor unit action potentials with reduced recruitment, increased amplitude, increased duration, and polyphasia in the right abductor pollicis brevis muscle. Impression: There is electrodiagnostic evidence of the following - 1) Severe, right median mononeuropathy at the wrist (carpal tunnel syndrome), with secondary motor fiber axonal loss 2) Moderate, left median mononeuropathy at the wrist (carpal tunnel syndrome), with motor and sensory fiber demyelination There is no electrodiagnostic evidence of a right/left cervical radiculopathy. Multi Select Codes Neurology Neurology Interp Codes: 19288-49 Musc test done w/n test comp (interp) (2) and 29525-12 Nrv cndj test 9-10 studies (interp)
== END | disposition home or self-care (01) ==
PROVIDERS: PCP Family Medicine; Referring Provider Family Medicine; Visit Provider Family Medicine
DX: M25.532 Pain in left wrist (principal)
CPT/HCPCS: 95886; 95911

== ENCOUNTER 2024-07-02 05:24 | Day surgery (SDC) | payer BC, SELFPAY ==
[2024-07-02] VITALS (8 sets, daily range): BP systolic 119–149; BP diastolic 70–94; PULSE 91–116; RESP 14–20; TEMP 36.2–36.3; O2SAT 92–97; BMI 45.8
[2024-07-02 06:34] LABS: Internal QC Validated? YES +Cl - CLEAR BKGD; Pregnancy, Urine Negative Negative; Record Kit Lot#,Urine Preg 772476
[2024-07-02] MEDS: Lactated Ringers 1,000 ML 15 ML IV (06:39)
--- NOTE | 2024-07-02 07:16 | HP.PCM_ITS ---
History and Physical Date of Admission: 07/02/24 [facility] [id number] [place] [address] OFFICE VISIT Date of Service: 06/10/24 MR#: [id number] Acct: [id number] Name: DONNY SIMS Rep #: [id number] : 1985 Provider: Dr. Thad Tyson DO Age/Sex: 39/F Location: [facility] Status: Signed with Addenda ADDENDUM by Dr. Thad Tyson DO on 06/10/24 at 1003 Assessment and Plan Assessment and Plan (1) Carpal tunnel syndrome, bilateral: Status: Acute Plan She was also complaining of swelling in her hands I explained to her this is not coming from her carpal tunnel and surgery will not help with this. 06/10/24 1003 <Electronically signed by Thad Tyson DO> Date Thad Tyson DO cc: ~* Signed Intake Vital Signs 04/24/2406:49 06/10/2408:48 Height 5 ft 5 ft Weight: 246 lb 6 oz BMI 48.1 Intake Visit Reasons: BI LAT WRISTS Is patient in pain?: Yes Pain scale (1-10): 3 Allergies warfarin sodium (From Coumadin) Allergy (Verified 06/10/24 08:50) SwellingBLOOD THINNERS Allergy (Uncoded 06/10/24 08:50) Unknown Medications ?Medication ?Instructions ?Recorded ?Confirmed ?Type drospirenone (contraceptive) 4 mg 04/24/24 06/10/24 History (28) tablet (Slynd) naproxen 500 mg tablet (Naprosyn) 500 mg PO BID PRN pain #20 tabs 04/24/24 06/10/24 Rx PFSH Medical History (Updated 06/10/24 @ 09:[address] Thad Tyson DO) Ovarian cyst PCOS (polycystic ovarian syndrome) Endometriosis Wears glasses Anxiety Diabetes Smoker Edema Migraine headache Injury of back Surgical History (Updated 04/24/24 @ 07:[address] Ru Song, DO) S/P cervical polypectomy History of removal of ovarian cyst History of lumbar laminectomy Family History (Updated 06/10/24 @ 08:52 by Lucinda Han) Other Diabetes Hypertension Social History (Updated 06/10/24 @ 08:52 by Lucinda Han) Smoking Status: Current every day smoker tobacco type: e-cigarettes HPI BI LAT WRISTS Details: This documentation accurately reflects the service provided and the decisions made by me, Dr. Thad Tyson, 06/10/24 0754. Part of today?s visit was documented by Laurel BRICE, acting as scribe. DONNY SIMS is a 39 year old F here today NEW patient for left carpal tunnel syndrome. She states that she first noticed signs of carpal tunnel syndrome when she was in her 20's but has gotten worse within the last month and a half. She states that she has pain that radiates from her elbow all the way down to her finger tips. She states that her middle finger tips on both hands are numb. She did have an EMG done on 06/03/24. She does wear a wrist brace on the left side every night which has been helping with her symptoms. She takes Naproxen as needed for pain. She does have trouble holding things and dropping things. She is right-hand dominant left is worse than the right. Ortho Exam General General: Yes no acute distress Neurologic: Yes alert and Yes oriented x3 Psychologic: Yes reasonable and appropriate Right Wrist/Hand Skin/Wound: Yes Swelling, No Ecchymosis and Yes capillary refill normal Right Wrist: Yes ROM-Extension 0-60, ROM-Flexion 0-80, ROM-Pronation 0-80 and ROM-Supination 0-90; No Durken's Test, Ed's Test, Tinel's, Phalen's, T henar Atrophy or Hypothenar Atrophy WRIST: tattoo over volar wrist Left Wrist/Hand Skin/Wound: Yes Swelling and No Ecchymosis Left Wrist: Yes ROM-Extension 0-60, Yes ROM-Flexion 0-80, Yes ROM-Pronation 0- 80, Yes ROM-Supination 0-90, Yes Durken's Test, Yes Tinel's and Yes Phalen's; No Thenar Atrophy and No Hypothenar Atrophy Head: Normocephalic Atraumatic Chest: symmetrical rise, non-labored breathing, no audible wheeze Abdomen: no guarding, non-rigid Supplemental Info 06/03/2024 bilateral upper extremity EM) Severe, right median mononeuropathy at the wrist (carpal tunnel syndrome), with secondary motor fiber axonal loss 2) Moderate, left median mononeuropathy at the wrist (carpal tunnel syndrome), with motor and sensory fiber demyelination Coding Level of Care Code Off vis,new,level 3 Diagnoses Carpal tunnel syndrome, bilateral G56.03 Assessment and Plan Assessment and Plan (1) Carpal tunnel syndrome, bilateral: Status: Acute Plan Patient is here today for bilateral carpal tunnel syndrome. Spoke with patient that she does have severe carpal tunnel syndrome in both hands as well as sone axon loss starting on the right. We discussed conservative and surgical options and due to the severity on the EMG particularly on the right I would recommend an open carpal tunnel release to prevent progression of her symptoms I did explain however the that due to the severity permanent damage can have already occurred and she may not get resolution of her symptoms or they can be prolonged recovery. She wishes to have the most symptomatic hand first which is the left. She has restrictions for the first 2 weeks of half a pound then at 2 weeks she would move up to a five pound restriction for another week. Spoke with patient that for work she would have 6 weeks of work restrictions. She was counseled to stop all NSAIDs 1 week prior to surgery including naproxen. Tentative surgery date 07/02/2024 Follow up at 2 weeks post op or sooner if pain, swelling, numbness or associated symptoms, or concerns develop. All questions answered. Patient in agreement of plan. 06/10/24 0959 <Electronically signed by Thad Tyson DO> Date Thad Tyson DO Cosigner Signature: Date (if applicable) CC: ~ I have examined the patient and the H&P has been reviewed. There are no clinical changes since date of exam.
[2024-07-02] MEDS: Cefazolin 2 GM in 0.9% Normal Saline (100mL Bag) 100 ML IV (07:21)
--- NOTE | 2024-07-02 07:22 | PCM.PRE.AN2 ---
ASA Classification* ASA Classification ASA Classification: 3 Assessment & Plan Anesthesia* Anesthesia Assessment Anesthesia Assessment: Discussed sedation and/or anesthesia options, risks, benefits, and alternatives with patient/parents/legal guardian/POA. Questions invited. The patient/parents/legal guardian/POA seems to understand and agrees to proceed with anesthesia plan. Reviewed the physical assessment, medical history, allergy history and patient home medications list prior to surgery/procedure/anesthetic and documented any changes. Performed airway and anesthesia risk assessments. Anesthesia Type Anesthesia Type: MAC (see written pre anesthesia record for full assessment ) Anesthesia Focused Assessment* Temperature: 97.2 F Pulse Rate: 91 Blood Pressure: 149/94 Respiratory Rate: 16 Pulse Ox: 97 Airway Assessment Mouth opens: >3 cm Mallampati Score: II Focused Labs Anesthesia Preop lab: CBC WBC 11.9 K/mm3 (4.4-11.0) H 08/31/21 05:54 RBC 4.03 M/mm3 (4.2-5.4) L 08/31/21 05:54 Hgb 11.7 g/dL (12.0-15.0) L 08/31/21 05:54 Hct 36.1 % (37-47) L 08/31/21 05:54 Plt Count 236 K/mm3 (150-450) 08/31/21 05:54 CHEMISTRY Potassium 3.5 mmol/L (3.5-5.1) 08/29/21 23:51 Sodium 138 mmol/L (136-145) 08/29/21 23:51 BUN 11 mg/dL (7-18) 08/29/21 23:51 Creatinine 0.70 mg/dL (0.55-1.02) 08/29/21 23:51 Glucose 122 mg/dL (74-106) H 08/29/21 23:51 COAG PT 13.3 SECONDS (11.7-14.9) 02/26/21 14:46 Urine Test Negative Negative 07/02/24 06:17 Pre-Assessment Diagnosis/Proposed Procedure Planned Operative Procedure(s): (L) Left open Carpal Tunnel Release Anesthesia History Anesthesia History - hydrostatic tester: Anesthesia History - hydrostatic tester Hx Hospitalization No 06/24/24 09:10 Any Problems With Anesthesia No 06/24/24 09:10 Cholinesterase deficiency No 06/24/24 09:10 You/Your Family Experience No 06/24/24 09:10 fever (hyperthermia) with Relationship Recent Exposure to Contagious No 07/02/24 06:29 Disease Does patient have nerve No 06/24/24 09:10 stimulator Patient instructed to have device shut off --Does patient have Pacemaker No 07/02/24 06:29 or ICD? When Was Last Pacemaker Check QUESTION #4 FULL TEXT: You/Your Family Experience fever (hyperthermia) with Anesthesia Last Oral Intake Last Oral intake: Last Oral Intake NPO since 18:30 07/02/24 06:29 Meds taken in AM with sips of water? Meds patient instructed to take am of surgery PONV PONV - hydrostatic tester: PONV - hydrostatic tester Female Yes 06/24/24 09:10 HX of Motion Sickness No 06/24/24 09:10 HX of N/V After Surgery No 06/24/24 09:10 Non-Smoker Yes 06/24/24 09:10 Duration of Surgery greater No 06/24/24 09:10 than 60 minutes Number of Risk Factors 2 06/24/24 09:10 PONV Score Moderate Risk 06/24/24 09:10 Height & Weight Height & Weight: Anesthesia: Height & Weight Height 5 ft 1 in 07/02/24 06:29 Weight: 110.2 kg 07/02/24 06:29 Body Mass Index (BMI) 45.8 07/02/24 06:29 Respiratory Assessment Respiratory Assessment - hydrostatic tester: Respiratory Tract Infection Hx - hydrostatic tester Hx Respiratory Tract Infection No 06/24/24 09:10 STOP Sleep Apnea STOP Sleep Apnea - hydrostatic tester: STOP Sleep Apnea - hydrostatic tester Hx Hypertension No 06/24/24 09:10 Hx Sleep Apnea No 06/24/24 09:10 CPAP BIPAP Do you snore loudly (louder No 06/24/24 09:10 than talking or can be heard Do you often feel tired/ No 06/24/24 09:10 fatigued/ sleepy during daytime? Has anyone observed you stop No 06/24/24 09:10 breathing during sleep? STOP Results Negative 06/24/24 09:10 QUESTION #5 FULL TEXT : Do you snore loudly (louder than talking or can be heard through closed doors)? Tobacco Use History Tobacco Use History - hydrostatic tester: Tobacco Use History - hydrostatic tester Tobacco Use Cigarettes 02/23/21 13:11 Smoking Status Current every day smoker 06/24/24 09:10 Hx Tobacco Use Yes 06/24/24 09:10 Years Smoking Packs Smoked per Day Smoking Cessation Date was within the last 15 years Hx Smoking Cessation Date Hx Smoking Cessation No 06/24/24 09:10 Counseling Hematologic Medial History Hematologic Hx - hydrostatic tester: Hematologic Medical Hx - operations representative Hx of Blood Transfusion No 06/24/24 09:10 Hx of Transfusion in last 3 No 06/24/24 09:10 Months Date of Last Transfusion (if within last 3 months) Ever experience any problems No 06/24/24 09:10 with transfusion(s)? Specify any problems Hx of Preganancy in last 3 No 06/24/24 09:10 Months Nurse Filling Out Transfusion VCHRISTIN 06/24/24 09:10 & Questions: Date: 06/24/24 06/24/24 09:10 Time: 09:11 06/24/24 09:10 Patient unable to answer at this time (ie. confused, unrespo /Reproduction History /Reproductive History - hydrostatic tester: /Reproductive Hx- hydrostatic tester Hx Now No 06/24/24 09:10 Gestational Age (in weeks): EDC: Hx Hx Para Hx Section SAB No 06/24/24 09:10 Active Medications Active Medications: Current Medications Generic Name Dose Route Start Last Admin Trade Name Freq PRN Reason Stop Dose Admin Cefazolin Sodium 2 gm/ Sodium 110 mls @ 150 mls/hr 07/02/24 07:30 Chloride IV 07/02/24 08:13 PREOP ONE Lactated Ringer's 1,000 mls @ 15 mls/hr 07/02/24 06:45 07/02/24 06:39 IV 15 mls/hr .Q48H SANTO Administration PFSH Medical History Arthritis History of edema Hx of ovarian cyst Ovarian cyst PCOS (polycystic ovarian syndrome) Endometriosis Wears glasses Anxiety Diabetes Smoker Edema Migraine headache Injury of back Home Medications ?Medication ?Instructions ?Recorded ?Last Taken ?Type drospirenone (contraceptive) 4 mg 1 tab PO DAILY 04/24/24 07/02/24 History (28) tablet (Slynd) naproxen 500 mg tablet (Naprosyn) 500 mg PO BID PRN pain #20 tabs 04/24/24 06/17/24 Rx Allergy/AdvReac Type Severity Reaction Status Date / Time heparin Allergy Severe EDEMA Verified 07/02/24 06:28 warfarin sodium (From Allergy Swelling Verified 07/02/24 06:28 Coumadin) Family History Other Diabetes Hypertension Surgical History History of hysteroscopy S/P cervical polypectomy History of removal of ovarian cyst History of lumbar laminectomy Social History Smoking Status: Current every day smoker tobacco type: e-cigarettes Review of Systems (Anesthesia) ROS Narrative System reviewed and no additional complaints, except as documented.
[2024-07-02] MEDS: Bupiv/Epi 0.25% 30 ML Vial (07:37)
--- NOTE | 2024-07-02 07:51 | OP.PCM_ITS ---
Operative Report Date of Procedure: 07/02/24 Preoperative diagnosis; left carpal tunnel syndrome Postoperative diagnosis; same Procedure: Left open carpal tunnel release Anesthesia: Local with MAC Tourniquet time; 10 minutes 250 mm Hg Complications: None Indication for procedure; This is a 39-year-old female with long-standing sym ptoms consistent with carpal tunnel syndrome the patient did have electrodiagnostic evidence of this and has failed conservative treatment. Risks benefits and alternatives were reviewed including risks of bleeding infection nerve artery tissue damage need for further surgery and continued pain and symptoms, hypersensitivity to scar and Pillar pain. Procedure; The patient was met in the preoperative holding area the operative extremity was identified by both patient and physician and was marked the patient was met by anesthesia and brought back to the operating room and transferred to the operating table in the supine position. Anesthesia was started. A well-padded tourniquet was placed on the operative upper extremity. The patient was prepped and draped in the usual sterile fashion. A timeout was called to ensure the proper patient procedure and extremity were being contemplated. 0.5 percent lidocaine with epinephrine was injected into the incisional area. An Esmarch was used to exsanguinate the extremity. The tourniquet was inflated to 250 mmHg. A midline incision was made with a 15 blade scalpel between the thenar and hypothenar eminence. This was carried down through the skin and subcutaneous tissue. Cristi retractors were then used, a deep blade scalpel was used to make a deep incision in the palmar aponeurosis. The cristi retractors were then placed deep to this and the transverse carpal ligament was identified a perforation was made with a scalpel and a Littler scissors were used to complete the release of the transverse carpal ligament distally under direct visualization with the tips facing ulnarly until the perivascular fat was reached. Then turning our attention proximally using a tension slide technique the proximal extent of the transverse carpal ligament was released . There was noted to be hourglass configuration to the median nerve and hypertrophy of the transverse carpal ligament without other findings. The wound was thoroughly irrigated and was closed with 4-0 nylon vertical mattress stitches. Dressing was applied in the form of xeroform 4 x 4, web roll and an surekha wrap. Tourniquet was let down there is no intraoperative complications patient tolerated the procedure well and was transferred to the PACU. All counts were correct.
--- NOTE | 2024-07-02 07:52 | EX.PCM.DISCH ---
Discharge Instructions Dressing / Incision Call your doctor if you observe: Shortness of breath and Chest pain Additional Dressing/Incision Instructions:: Ice and elevate operative extremity next 72 hours. Keep dressing on clean and dry for 48 hours then may remove and allow warm soapy water to rinse over incision but do not submerge until sutures are out. Then apply bandaid over incision and change daily. encourage finger range of motion. Not lift more than 1/2 pound. Minimize narcotic use only as needed and directed, may use OTC NSAID and Tylenol to supplement/substitute for pain control. Follow Up Care Please Follow Up With: Thad Tyson DO When: 2 weeks Test Results: Test results from this visit will be discussed in further detail at your follow-up appointment, if applicable. Discharge Plan Admission Primary Reason for Your Visit: Left carpal tunnel release Attending Provider: Thad Tyson Primary Care Provider: Julien Figueroa Instructions Print Language: Icelandic Discharge Orders/Prescriptions Prescriptions: New oxycodone 5 mg tablet 5 - 10 mg PO Q6H PRN (Reason: pain) 7 Days Qty: 12 0RF Continued naproxen [Naprosyn] 500 mg tablet 500 mg PO BID PRN (Reason: pain) Qty: 20 0RF No Action Slynd 4 mg (28) tablet 1 tab PO DAILY Patient Comments: PLEASE SEE ATTACHED FOR DETAILED DIRECTIONS Referrals / Follow Up: Julien Figueroa MD [Primary Care Provider] - Disposition Disposition (needs filled in before D/C Order can be placed): Home, Self Care
--- NOTE | 2024-07-02 09:00 | PCM.POST.ANE ---
Anesthesia: Postop Eval I Current Vital Signs Temperature: 97.3 F Pulse Rate: 95 Blood Pressure: 127/81 Respiratory Rate: 14 Pulse Ox: 95 Oxygen Delivery Method: Room Air Assessment Airway patent: Yes Spontaneous unlabored respirations: Yes Mental status: Awake and Calm nausea: No Vomiting: No Anesthesia Complication: No Fluid Hydration Crystalloid volume administer (ml): 500 Total IV fluid infused: 500 Progress Note Anesthesia document: Postop Eval 1 completed: Yes
== END 2024-07-02 09:19 | disposition home or self-care (01) ==
LOC: SDC 05:24 → AC 05:25
PROVIDERS: Anesthesiology; PCP Family Medicine; Visit Provider Orthopaedic Surgery
PROC: (CPT 64721; principal; 2024-07-02 07:15)
DX: G56.03 Carpal tunnel syndrome, bilateral upper limbs (principal); E11.9 Type 2 diabetes mellitus without complications; F17.290 Nicotine dependence, other tobacco product, uncomplicated
CPT/HCPCS: 64721; 01810; 81025; J7120; J2405

== ENCOUNTER 2024-10-08 05:23 | Day surgery (SDC) | payer BC, SELFPAY ==
[2024-10-08] VITALS (7 sets, daily range): BP systolic 118–147; BP diastolic 77–98; PULSE 95–109; RESP 16–18; TEMP 36.1–36.7; O2SAT 93–98; BMI 102.3
[2024-10-08 06:36] LABS: Internal QC Validated? YES +Cl - CLEAR BKGD; Pregnancy, Urine Negative Negative; Record Kit Lot#,Urine Preg 872158
--- NOTE | 2024-10-08 06:41 | PRE.ANES_ITS ---
ASA Classification* ASA Classification ASA Classification: 3 Assessment & Plan Anesthesia* Anesthesia Assessment Anesthesia Assessment: Discussed sedation and/or anesthesia options, risks, benefits, and alternatives with patient/parents/legal guardian/POA. Questions invited. The patient/parents/legal guardian/POA seems to understand and agrees to proceed with anesthesia plan. Reviewed the physical assessment, medical history, allergy history and patient home medications list prior to surgery/procedure/anesthetic and documented any changes. Performed airway and anesthesia risk assessments. Anesthesia Type Anesthesia Type: MAC Anesthesia Focused Assessment* Temperature: 98.0 F Pulse Rate: 98 Blood Pressure: 147/93 Respiratory Rate: 16 Pulse Ox: 98 Airway Assessment Mouth opens: >3 cm Mallampati Score: II Focused Labs Anesthesia Preop lab: CBC WBC 11.9 K/mm3 (4.4-11.0) H 08/31/21 05:54 RBC 4.03 M/mm3 (4.2-5.4) L 08/31/21 05:54 Hgb 11.7 g/dL (12.0-15.0) L 08/31/21 05:54 Hct 36.1 % (37-47) L 08/31/21 05:54 Plt Count 236 K/mm3 (150-450) 08/31/21 05:54 CHEMISTRY Potassium 3.5 mmol/L (3.5-5.1) 08/29/21 23:51 Sodium 138 mmol/L (136-145) 08/29/21 23:51 BUN 11 mg/dL (7-18) 08/29/21 23:51 Creatinine 0.70 mg/dL (0.55-1.02) 08/29/21 23:51 Glucose 122 mg/dL (74-106) H 08/29/21 23:51 COAG PT 13.3 SECONDS (11.7-14.9) 02/26/21 14:46 Urine Test Negative Negative 10/08/24 06:10 Pre-Assessment Diagnosis/Proposed Procedure Planned Operative Procedure(s): Right open Carpal Tunnel Release Anesthesia History 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 When Was Last Pacemaker Check QUESTION #4 FULL TEXT: You/Your Family Experience fever (hyperthermia) with Anesthesia Last Oral Intake Last Oral intake: Last Oral Intake NPO since 19:00 10/08/24 06:30 Meds taken in AM with sips of water? Meds patient instructed to take am of surgery PONV PONV - bending machine operator: PONV - bending machine operator Female Yes 09/30/24 14:26 HX of Motion Sickness Yes 09/30/24 14:26 HX of N/V After Surgery No 09/30/24 14:26 Non-Smoker No 09/30/24 14:26 Duration of Surgery greater No 09/30/24 14:26 than 60 minutes Number of Risk Factors 2 09/30/24 14:26 PONV Score Moderate Risk 09/30/24 14:26 Height & Weight Height & Weight: Anesthesia: Height & Weight Height 5 ft 1 in 10/08/24 06:30 Weight: 245.6 kg 10/08/24 06:30 Body Mass Index (BMI) 102.3 10/08/24 06:30 Respiratory Assessment Respiratory Assessment - bending machine operator: Respiratory Tract Infection Hx - bending machine operator Hx Respiratory Tract Infection No 09/30/24 14:26 STOP Sleep Apnea STOP Sleep Apnea - bending machine operator: STOP Sleep Apnea - bending machine operator Hx Hypertension No 09/30/24 14:26 Hx Sleep Apnea No 09/30/24 14:26 CPAP BIPAP Do you snore loudly (louder Yes 09/30/24 14:26 than talking or can be heard Do you often feel tired/ No 09/30/24 14:26 fatigued/ sleepy during daytime? Has anyone observed you stop Yes 09/30/24 14:26 breathing during sleep? STOP Results Positive 09/30/24 14:26 QUESTION #5 FULL TEXT : Do you snore loudly (louder than talking or can be heard through closed doors)? Tobacco Use History Tobacco Use History - bending machine operator: Tobacco Use History - bending machine operator Tobacco Use Cigarettes 02/23/21 13:11 Smoking Status Current every day smoker 09/30/24 14:26 Hx Tobacco Use Yes 09/30/24 14:26 Years Smoking Packs Smoked per Day Smoking Cessation Date was within the last 15 years Hx Smoking Cessation Date Hx Smoking Cessation No 09/30/24 14:26 Counseling Hematologic Medial History Hematologic Hx - bending machine operator: Hematologic Medical Hx - gynecologist Hx of Blood Transfusion No 09/30/24 14:26 Hx of Transfusion in last 3 No 09/30/24 14:26 Months Date of Last Transfusion (if within last 3 months) Ever experience any problems No 09/30/24 14:26 with transfusion(s)? Specify any problems Hx of Preganancy in last 3 No 09/30/24 14:26 Months Nurse Filling Out Transfusion VCHRISTIN 09/30/24 14:26 & Questions: Date: 09/30/24 09/30/24 14:26 Time: 14:28 09/30/24 14:26 Patient unable to answer at this time (ie. confused, unrespo /Reproduction History /Reproductive History - bending machine operator: /Reproductive Hx- bending machine operator Hx Now Gestational Age (in weeks): EDC: Hx Hx Para Hx Section SAB No 09/30/24 14:26 Active Medications Active Medications: Current Medications Generic Name Dose Route Start Last Admin Trade Name Freq PRN Reason Stop Dose Admin Cefazolin Sodium 2 gm/ N/A 20 mls @ 400 mls/hr 10/08/24 14:50 IV 10/08/24 14:52 PREOP ONE PFSH Medical History Arthritis History of edema Hx of ovarian cyst Ovarian cyst PCOS (polycystic ovarian syndrome) Endometriosis Wears glasses Anxiety Diabetes Smoker Edema Migraine headache Injury of back Home Medications ?Medication ?Instructions ?Recorded ?Last Taken ?Type drospirenone (contraceptive) 4 mg 1 tab PO DAILY 04/24/24 10/08/24 History (28) tablet (Slynd) naproxen 500 mg tablet (Naprosyn) 500 mg PO BID PRN pain #20 tabs 04/24/24 06/17/24 Rx Allergy/AdvReac Type Severity Reaction Status Date / Time heparin Allergy Severe EDEMA Verified 10/08/24 06:29 warfarin sodium (From Allergy Swelling Verified 10/08/24 06:29 Coumadin) Family History Other Diabetes Hypertension Surgical History History of carpal tunnel surgery of left wrist History of hysteroscopy S/P cervical polypectomy History of removal of ovarian cyst History of lumbar laminectomy Social History Smoking Status: Current every day smoker tobacco type: e-cigarettes Review of Systems (Anesthesia) ROS Narrative System reviewed and no additional complaints, except as documented.
--- NOTE | 2024-10-08 07:24 | HP.PCM_ITS ---
History and Physical Date of Admission: 10/08/24 [facility] [address] [place] [address] OFFICE VISIT Date of Service: 07/15/24 MR#: [id number] Acct: [id number] Name: DONNY SIMS Rep #: [id number] : 1985 Provider: Dr. Thad Tyson DO Age/Sex: 39/F Location: [facility] [place] Status: Signed Intake Vital Signs 06/10/2408:48 07/02/2406:29 Height 5 ft 5 ft 1 in Intake Visit Reasons: left wrist Is patient in pain?: No Allergies heparin Allergy (Severe, Verified 07/15/24 09:09) EDEMAwarfarin sodium (From Coumadin) Allergy (Verified 07/15/24 09:09) Swelling Medications ?Medication ?Instructions ?Recorded ?Confirmed ?Type drospirenone (contraceptive) 4 mg 1 tab PO DAILY 04/24/24 07/15/24 History (28) tablet (Slynd) naproxen 500 mg tablet (Naprosyn) 500 mg PO BID PRN pain #20 tabs 04/24/24 07/15/24 Rx PFSH Medical History Arthritis History of edema Hx of ovarian cyst Ovarian cyst PCOS (polycystic ovarian syndrome) Endometriosis Wears glasses Anxiety Diabetes Smoker Edema Migraine headache Injury of back Surgical History History of hysteroscopy S/P cervical polypectomy History of removal of ovarian cyst History of lumbar laminectomy Family History Other Diabetes Hypertension Social History Smoking Status: Current every day smoker tobacco type: e-cigarettes HPI left wrist Details: This documentation accurately reflects the service provided and the decisions made by , Dr. Thad Tyson DO 07/15/24 0756. Part of today?s visit was documented by Ximena Hernandez, acting as scribe. DONNY SIMS is a 39 year old F here today for s/p Left open carpal tunnel release dos 07/02/24. Patient notes that she is doing well. She states that she no longer has any numbness or tingling and is very pleased with her result so far. Her incision looks good with no redness or drainage. She would like to discuss her right carpal tunnel and proceed with it later in the year. Ortho Exam General General: Yes no acute distress Neurologic: Yes alert and Yes oriented x3 Psychologic: Yes reasonable and appropriate Right Wrist/Hand Skin/Wound: No Swelling and No Ecchymosis Positive Tinel's and Durkan's Left Wrist/Hand Skin/Wound: Yes healing, Yes suture/zen removed, No Swelling and No Ecchymosis WRIST: able to make a fist. Full finger and wrist range of motion incision is well- approximated with no signs of infection sutures were removed today Head: Normocephalic Atraumatic Chest: symmetrical rise, non-labored breathing, no audible wheeze Abdomen: no guarding, non-rigid Supplemental Info 07/02/2024 left open carpal tunnel release: Dr. 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 She may begin massaging her incision in about 10 days for scar tissue. Patient should contact our office about a month prior to when she would like to move forward with her right carpal tunnel release. Follow up on an as needed basis or sooner if pain, swelling, numbness or associated symptoms, or concerns develop. All questions answered. Patient in agreement of plan. 07/15/24 0950 <Electronically signed by Thad Tyson DO> Date Thad Rasheedreshma DO Castellanos Signature: Date (if applicable) I have examined the patient the following changes are noted: Patient wished to proceed with right carpal tunnel release. She understands risk benefits and alternatives of procedure as were seen with her last surgery and her symptoms were consistent with her other side.
[2024-10-08] MEDS: Cefazolin 2 GM in Syringe IV (07:29)
[2024-10-08] MEDS: Bupiv/Epi 0.25% 30 ML Vial (07:51)
--- NOTE | 2024-10-08 07:58 | PCM.OPRPT ---
Operative Report (Standard) Operative Information Date of Procedure: 10/08/24 Pre-Operative Diagnosis: Right carpal tunnel syndrome Post-Operative Diagnosis: Same Surgery/Procedure Performed: Right open carpal tunnel release rug inspector: Yes Dynamometer Repairer: Red Jin Tasks completed by workforce development assistant: Opening & closing Type of Anesthesia: Local RN Documented Start/Stop Times: Operation Date: 10/08/24 07:30 Case Time Into Pre-Op 10/08/24 05:33 Out of Pre-Op 10/08/24 07:21 Anesthesia Start 10/08/24 07:29 Into Room 10/08/24 07:29 Procedure Start 10/08/24 07:47 Procedure End 10/08/24 07:58 Procedure Start Time: 07:47 Procedure Stop Time: 07:58 Select all DRAINS/GRAFTS/IMPLANTS that apply: None Estimated Blood Loss: 2 Specimen collected: No Description of surgery: Preoperative diagnosis; right carpal tunnel syndrome Postoperative diagnosis; same Procedure: Right open carpal tunnel release Anesthesia: Local with MAC Tourniquet time; [10] minutes 250 mm Hg Complications: None Indication for procedure; This is a [39]-year-old [female] with long-standing symptoms consistent with carpal tunnel syndrome the patient did have electrodiagnostic evidence of this and has failed conservative treatment. Risks benefits and alternatives were reviewed including risks of bleeding infection nerve artery tissue damage need for further surgery and continued pain and symptoms, hypersensitivity to scar and Pillar pain. Procedure; The patient was met in the preoperative holding area the operative extremity was identified by both patient and physician and was marked the patient was met by anesthesia and brought back to the operating room and transferred to the operating table in the supine position. Anesthesia was started. A well-padded tourniquet was placed on the operative upper extremity. The patient was prepped and draped in the usual sterile fashion. A timeout was called to ensure the proper patient procedure and extremity were being contemplated. 0.5 percent [ Lidocaine] with epinephrine was injected into the incisional area. An Esmarch was used to exsanguinate the extremity. The tourniquet was inflated to 250 mmHg. A midline incision was made with a 15 blade scalpel between the thenar and hypothenar eminence. This was carried down through the skin and subcutaneous tissue. Cristi retractors were then used, a deep blade scalpel was used to make a deep incision in the palmar aponeurosis. The cristi retractors were then placed deep to this and the transverse carpal ligament was identified a perforation was made with a scalpel and a Littler scissors were used to complete the release of the transverse carpal ligament distally under direct visualization with the tips facing ulnarly until the perivascular fat was reached. Then turning our attention proximally using a tension slide technique the proximal extent of the transverse carpal ligament was released . There was noted to be [hourglass configuration to the median nerve and hypertrophy of the transverse carpal ligament without other findings]. The wound was thoroughly irrigated and was closed with 4-0 nylon vertical mattress stitches. Dressing was applied in the form of xeroform 4 x 4, web roll and an surekha wrap. Tourniquet was let down there is no intraoperative complications patient tolerated the procedure well and was transferred to the PACU. All counts were correct. Surgical Findings: Hypertrophied transverse carpal ligament Complications Complications: No
--- NOTE | 2024-10-08 08:00 | EX.PCM.DISCH ---
Discharge Instructions Diet Discharge Diet: No restrictions Activity Keep extremity elevated above heart level: Operative Extremity Dressing / Incision Call your doctor if you observe: Shortness of breath and Chest pain Additional Dressing/Incision Instructions:: Ice and elevate operative extremity next 72 hours. Keep dressing on clean and dry for 48 hours then may remove and allow warm soapy water to rinse over incision but do not submerge until sutures are out. Then apply bandaid over incision and change daily. encourage finger range of motion. Not lift more than 1/2 pound. Minimize narcotic use only as needed and directed, may use OTC NSAID and Tylenol to supplement/substitute for pain control. Follow Up Care Please Follow Up With: Thad Tsyon DO When: 2 weeks Test Results: Test results from this visit will be discussed in further detail at your follow-up appointment, if applicable. Discharge Plan Admission Primary Reason for Your Visit: Right carpal tunnel release Attending Provider: Thad Tyson Primary Care Provider: Julien Figueroa Instructions Print Language: Uruguayan Discharge Orders/Prescriptions Prescriptions: New oxycodone 5 mg tablet 5 - 10 mg PO Q4H PRN (Reason: pain) 7 Days Qty: 10 0RF Held naproxen [Naprosyn] 500 mg tablet 500 mg PO BID PRN (Reason: pain) Qty: 20 0RF Hold Instructions: Resume on 10/09/24. No Action Slynd 4 mg (28) tablet 1 tab PO DAILY Patient Comments: PLEASE SEE ATTACHED FOR DETAILED DIRECTIONS Referrals / Follow Up: Julien Figueroa MD [Primary Care Provider] - Disposition Disposition (needs filled in before D/C Order can be placed): Home, Self Care
--- NOTE | 2024-10-08 08:12 | PCM.POST.ANE ---
Anesthesia: Postop Eval I Current Vital Signs Temperature: 97 F Pulse Rate: 109 Blood Pressure: 143/94 Respiratory Rate: 16 Pulse Ox: 95 Oxygen Delivery Method: Room Air Assessment Airway patent: Yes Spontaneous unlabored respirations: Yes Mental status: Awake and Calm nausea: No Vomiting: No Anesthesia Complication: No Fluid Hydration Crystalloid volume administer (ml): 30 Total IV fluid infused: 30 Progress Note Anesthesia document: Postop Eval 1 completed: Yes
--- NOTE | 2024-10-08 08:24 | POSTOPAN2_ITS ---
Anesthesia Postop Eval I Sum Postop Eval Completion status Anesthesia document: Postop Eval 1 completed: Yes Anesthesia Postop Eval I Summary Anesthesia Postop Eval I Summary: Anesthesia Postop Eval I: Assessment Summary Airway patent Yes 10/08/24 08:22 WATCH CRYSTAL EDGE GRINDER.[email or web address] Spontaneous unlabored Yes 10/08/24 08:22 WATCH CRYSTAL EDGE GRINDER.CHRISLOU respirations Mental status Awake,Calm 10/08/24 08:22 WATCH CRYSTAL EDGE GRINDER.CHRISLOU nausea No 10/08/24 08:22 WATCH CRYSTAL EDGE GRINDER.JBLOU Vomiting No 10/08/24 08:22 WATCH CRYSTAL EDGE GRINDER.JBLOU Anesthesia Postop Eval I: Fluid Summary Crystalloid volume administer 30 10/08/24 08:22 WATCH CRYSTAL EDGE GRINDER.JBLOU (ml) Colloids volume administered ( ml) Blood Product volume administered (ml) Total IV fluid infused 30 10/08/24 08:22 WATCH CRYSTAL EDGE GRINDER.CHRISLOU Anesthesia Postop Eval I: Summary Notes Anesthesia Complication No 10/08/24 08:22 WATCH CRYSTAL EDGE GRINDER.CHRISLOMahesh Anesthesia Complication Comment: Post-operative progress note Anesthesia: Postop Eval II Evaluation Mental status: Awake Pain Level: 0 nausea: No Vomiting: No
--- NOTE | 2024-10-08 08:24 | PCM.POSTANE2 ---
Anesthesia Postop Eval I Sum Postop Eval Completion status Anesthesia document: Postop Eval 1 completed: Yes Anesthesia Postop Eval I Summary Anesthesia Postop Eval I Summary: Anesthesia Postop Eval I: Assessment Summary Airway patent Yes 10/08/24 08:22 TERRITORY SERVICE REPRESENTATIVE.CHRISLOU Spontaneous unlabored Yes 10/08/24 08:22 TERRITORY SERVICE REPRESENTATIVE.CHRISLOU respirations Mental status Awake,Calm 10/08/24 08:22 TERRITORY SERVICE REPRESENTATIVE.CHRISLOU nausea No 10/08/24 08:22 TERRITORY SERVICE REPRESENTATIVE.JBLOU Vomiting No 10/08/24 08:22 TERRITORY SERVICE REPRESENTATIVE.JBLOU Anesthesia Postop Eval I: Fluid Summary Crystalloid volume administer 30 10/08/24 08:22 TERRITORY SERVICE REPRESENTATIVE.JBLOU (ml) Colloids volume administered ( ml) Blood Product volume administered (ml) Total IV fluid infused 30 10/08/24 08:22 TERRITORY SERVICE REPRESENTATIVE.CHRISLOU Anesthesia Postop Eval I: Summary Notes Anesthesia Complication No 10/08/24 08:22 TERRITORY SERVICE REPRESENTATIVE.CHRISLOMahesh Anesthesia Complication Comment: Post-operative progress note Anesthesia: Postop Eval II Evaluation Mental status: Awake Pain Level: 0 nausea: No Vomiting: No
== END 2024-10-08 08:53 | disposition home or self-care (01) ==
LOC: SDC 05:27 → AC 05:27
PROVIDERS: Anesthesiology; PCP Family Medicine; Referring Provider Orthopaedic Surgery; Visit Provider Orthopaedic Surgery
PROC: (CPT 64721; principal; 2024-10-08 07:15)
DX: G56.01 Carpal tunnel syndrome, right upper limb (principal); E11.9 Type 2 diabetes mellitus without complications; F17.290 Nicotine dependence, other tobacco product, uncomplicated
CPT/HCPCS: 64721; 01810; 81025; A4216; J2405

== ENCOUNTER → 2025-03-29 | Outpatient (CLI) | payer BC, SELFPAY ==
[2025-03-29 08:36] LABS: Hematocrit 39.2 % (37-47); Hemoglobin 13.7 g/dL (12.0-15.0); Mean Corp Hgb Conc 34.9 g/dL (32-36); Mean Corpuscular Hgb 31.1 pg (27.0-32.0); Mean Corpuscular Volume 88.9 fL (81-99); Mean Platelet Vol. 10.1 fl (6.2-12.0); Platelet Count 252 K/mm3 (150-450); RBC Distribution Width CV 12.4 % (11.6-14.6); RBC Distribution Width SD 40.4 fl (35.1-43.9); Red Blood Count 4.41 M/mm3 (4.2-5.4)
[2025-03-29 09:10] LABS: Anion Gap 12 (5-15); BUN 8 mg/dL (4-19); BUN/Creat Ratio 11.1 RATIO (10-20); Calcium,Total 8.9 mg/dL (7.6-11.0); Carbon Dioxide 18.7 mmol/L (21.0-32.0); Chloride 110 mmol/L (98-108); Cholesterol 173 mg/dL (<=200); Creatinine, Serum 0.76 mg/dL (0.70-1.20); EST Glomerular Filtration Rate 103 (>60); Glucose 105 mg/dL (70-99); High Density Lipoprotein 39 mg/dL; Low Density Lipoprotein Calc. 120 mg/dL; Potassium 3.9 mmol/L (3.3-5.1); Sodium Level 141 mmol/L (133-145); Triglycerides 70 mg/dL; Very Low Density Lipoprotein 14 mg/dL (5-40); cholesterol:hdl ratio screen 4.41
== END | disposition home or self-care (01) ==
LOC: LAB 08:02
PROVIDERS: PCP Family Medicine; Referring Provider Family Medicine; Visit Provider Family Medicine
DX: Z00.00 Encounter for general adult medical examination without abnormal findings (principal); T14.8XXA Other injury of unspecified body region, initial encounter
CPT/HCPCS: 36415; 80048; 80061; 84443; 85027

== ENCOUNTER → 2025-08-20 | Outpatient (CLI) | payer BC, SELFPAY ==
[2025-08-20 15:25] LABS: Hematocrit 39.8 % (37-47); Hemoglobin 14.1 g/dL (12.0-15.0); Immature Granulocytes Count 0.010 X10^3/uL (0.0-0.0); Mean Corp Hgb Conc 35.4 g/dL (32-36); Mean Corpuscular Volume 88.1 fL (81-99); Mean Platelet Vol. 10.6 fl (6.2-12.0); NRBC Flagged by Analyzer 0 % (0-5); Platelet Count 292 K/mm3 (150-450); RBC Distribution Width CV 12.2 % (11.6-14.6); RBC Distribution Width SD 39.4 fl (35.1-43.9); Red Blood Count 4.52 M/mm3 (4.2-5.4); White Blood Count 6.6 K/mm3 (4.4-11.0)
[2025-08-20 15:57] LABS: AST(SGOT) 18 U/L (<=31); Alanine Aminotransfer ALT/SGPT 22 U/L (<=34); Albumin, Serum 4.6 g/dL (3.5-5.0); Alkaline Phosphatase 46 U/L (35-104); Anion Gap 14 (5-15); BUN 8 mg/dL (4-19); BUN/Creat Ratio 11.3 RATIO (10-20); Calcium,Total 9.2 mg/dL (7.6-11.0); Carbon Dioxide 19.6 mmol/L (21.0-32.0); Chloride 105 mmol/L (98-108); Globulin 2.9 g/dL (2.2-4.2); Glucose 97 mg/dL (70-99); Potassium 3.5 mmol/L (3.3-5.1)
== END | disposition home or self-care (01) ==
LOC: MFPLAB 12:14
PROVIDERS: PCP Family Medicine; Visit Provider Family Medicine
DX: R11.0 Nausea (principal); R19.7 Diarrhea, unspecified
CPT/HCPCS: 36415; 80053; 85025; 87506

== ENCOUNTER → 2025-09-05 | Outpatient (CLI) | payer BC, SELFPAY ==
[2025-09-05 18:01] LABS: AST(SGOT) 19 U/L (<=31); Alanine Aminotransfer ALT/SGPT 26 U/L (<=34); Albumin, Serum 3.5 g/dL (3.5-5.0); Alkaline Phosphatase 48 U/L (35-104); Anion Gap 14 (5-15); BUN 11 mg/dL (4-19); BUN/Creat Ratio 15.7 RATIO (10-20); Calcium,Total 8.4 mg/dL (7.6-11.0); Carbon Dioxide 18.4 mmol/L (21.0-32.0); Chloride 108 mmol/L (98-108); Globulin 1.7 g/dL (2.2-4.2); Glucose 79 mg/dL (70-99); Potassium 3.4 mmol/L (3.3-5.1)
== END | disposition home or self-care (01) ==
LOC: MFPLAB 16:02
PROVIDERS: PCP Family Medicine; Visit Provider Family Medicine
DX: B35.1 Tinea unguium (principal)
CPT/HCPCS: 36415; 80053